=== PATIENT | male | born 1960 | race Caucasian/White ===

== ENCOUNTER 2022-06-22 11:04 | Emergency (ER) | payer BC ==
[2022-06-22] MEDS ORDERED: NA CHLORIDE 0.9% 1,000 ML ONE (11:24)
[2022-06-22] MEDS ORDERED: MECLIZINE HCL 12.5 MG TAB ONE (11:24)
[2022-06-22] MEDS ORDERED: ONDANSETRON 4 MG/2 ML VIAL ONE (11:24)
--- NOTE | 2022-06-22 11:40 | RAD REPORT ---
EXAM DESCRIPTION: CT - Head Brain Wo Cont - 06/22/2022 11:33 am CLINICAL HISTORY: Dizziness COMPARISON: none TECHNIQUE: Computed axial tomography of the head was obtained. IV contrast was not requested. All CT scans are performed using dose optimization technique as appropriate and may include automated exposure control or mA/KV adjustment according to patient size. FINDINGS: An intracranial bleed is not seen The ventricles are normal in caliber No significant hypodense areas within the brain visualized No extra-axial fluid collection is noted. Fluid within the sinuses/ mastoids is not seen IMPRESSION: No acute intracranial abnormality is seen If patient's symptoms persist MRI of the brain would be recommended
--- NOTE | 2022-06-22 11:44 | RAD REPORT ---
EXAM DESCRIPTION: [facility] Single View3 11:34 am CLINICAL HISTORY: Chest pain COMPARISON: none FINDINGS: The lungs appear clear of acute infiltrate. The heart is normal size IMPRESSION: No acute abnormalities displayed
[2022-06-22 11:48] LABS: Absolute Lymphocytes (CBC) 1.9 K/uL (0.7-4.9); Lymphocytes % 19.8 % (15.3-44.8); MCV 96.5 fL (80-100); RBC Red Blood Cell Count 4.97 M/uL (4.33-5.43)
[2022-06-22 11:57] LABS: Protime INR 1.01
[2022-06-22 12:18] LABS: ALT/SGPT 25 U/L (16-61); AST/SGOT 17 U/L (15-37); Alkaline Phosphatase 60 U/L (45-117); BUN Blood Urea Nitrogen 13 mg/dL (7-18); Bicarbonate 27 mmol/L (21-32); Bilirubin Direct 0.3 mg/dL (0-0.2); Bilirubin Total 0.7 mg/dL (0.2-1.0); Glomerular Filtration Rate 96 ml/min (=/>90); Glucose Level 185 mg/dL (74-106); Lipase 53 U/L (13-75); NT PRO-BNP 29 pg/mL (<125); Potassium 4.3 mmol/L (3.5-5.1); Protein, Total 7.2 g/dL (6.4-8.2); Sodium Level 136 mmol/L (136-145)
--- NOTE | 2022-06-22 12:21 | RAD REPORT ---
EXAM DESCRIPTION: USCarotid Artery Bilateral06/22/2022 11:59 am CLINICAL HISTORY: Dizziness COMPARISON: None FINDINGS: The velocity of the right internal carotid artery equals 100 a cm/sec. The right ICA/CCA r atio 1.4 The velocity of the left internal carotid artery equals 106 cm/sec. The left ICA/CCA ratio 1.3 Mild plaque is present within the carotid arteries. The vertebral arteries demonstrate antegrade flow IMPRESSION: Mild plaque within the carotid arteries without evidence of a hemodynamically significan t stenosis NASCET criteria used. Mild 0-49% stenosis Moderate 50-69% stenosis Severe 70-99% stenosis
[2022-06-22 12:23] LABS: Troponin High Sensitivity < 3.0 pg/mL (<58.9)
[2022-06-22 13:01] LABS: SARS-COV-2 RT PCR NEGATIVE (NEGATIVE)
[2022-06-22] MEDS ORDERED: ASPIRIN 81 MG CHEWABLE TABLET ONE (13:06)
--- NOTE | 2022-06-22 13:08 | ER ---
Nurse's Notes [facility] Name: Ry Meléndez Age: 62 yrs Sex: Male : 1960 Arrival Date: 06/22/2022 Time: 11:08 Bed 24 Private MD: Diagnosis: Dizziness and giddiness;Benign paroxysmal vertigo, unspecified ear Presentation: 06/22 11:14 Chief complaint: Patient states: Gradual onset of dizziness/ lightheadedness that began ss at 0900 this morning. PT reports that he has been battling allergies the past 3 days and had problems with his L ear, but feels it has gotten a little better. Coronavirus screen: Client denies travel out of the [place] in the last 14 days. Ebola Screen: Patient denies exposure to infectious person. Patient denies travel to an Ebola-affected area in the 21 days before illness onset. Initial Sepsis Screen: Does the patient meet any 2 criteria? No. Patient's initial sepsis screen is negative. Does the patient have a suspected source of infection? No. Patient's initial sepsis screen is negative. Risk Assessment: Do you want to hurt yourself or someone else? Patient reports no desire to harm self or others. Onset of symptoms was June 22, 2022. 11:14 Method Of Arrival: Ambulatory ss 11:14 Acuity: ZEESHAN 2 ss Triage Assessment: 12:00 General: Appears in no apparent distress. uncomfortable, Behavior is calm, cooperative, eh3 appropriate for age. Pain: Denies pain. Historical: - Allergies: 11:17 Singulair; ss - PMHx: 11:17 Prediabetic; Hypertensive disorder; ss - PSHx: 11:17 Tonsillectomy; Adenoid excision; ss - Immunization history:: Client reports having NOT received the Covid vaccine. - Social history:: Smoking status: Patient denies any tobacco usage or history of. Patient uses alcohol, only on a social basis. - Family history:: not pertinent. Screenin:00 [facility] ED Fall Risk Assessment (Adult) History of falling in the last 3 months, eh3 including since admission No falls in past 3 months (0 pts) Confusion or Disorientation No (0 pts) Intoxicated or Sedated No (0 pts) Impaired Gait No (0 pts) Mobility Assist Device Used No (0 pt) Altered Elimination No (0 pt) Score/Fall Risk Level 0 - 2 = Low Risk. Abuse screen: Denies threats or abuse. Denies injuries from another. Nutritional screening: No deficits noted. Tuberculosis screening: No symptoms or risk factors identified. Assessment: 12:00 General: Appears in no apparent distress. comfortable, Behavior is calm, cooperative, eh3 appropriate for age. Pain: Denies pain. Pain does not radiate. Pain began 2 hours ago. Neuro: Level of Consciousness is awake, alert, obeys commands, Oriented to person, place, time, situation, Reports dizziness. Cardiovascular: Capillary refill < 3 seconds Patient's skin is warm and dry. Respiratory: Airway is patent Respiratory effort is even, unlabored, Respiratory pattern is regular, symmetrical. 13:00 Reassessment: Patient appears in no apparent distress at this time. Patient and/or eh3 family updated on plan of care and expected duration. Pain level reassessed. Patient is alert, oriented x 3, equal unlabored respirations, skin warm/dry/pink. Vital Signs: 11:14 BP 138 / 77; Pulse 58; Resp 16; Temp 97.8(TE); Pulse Ox 98% on R/A; Weight 107.5 kg; Height 6 ft. 2 in. (187.96 cm); Pain 0/10; 12:00 BP 120 / 82; Pulse 55; Resp 16; Pulse Ox 96% on R/A; eh3 13:00 BP 118 / 92; Pulse 63; Resp 14; Pulse Ox 97% on R/A; eh3 11:14 Body Mass Index 30.43 (107.50 kg, 187.96 cm) ED Course: 11:08 Patient arrived in ED. em1 11:09 Lawrence Caraballo MD is Attending Physician. leigh 11:17 Triage completed. ss 11:17 Arm band placed on right wrist. ss 11:34 CT Head Brain wo Cont In Process Unspecified. EDMS 11:35 XRAY Chest (1 view) In Process Unspecified. EDMS 11:46 US Carotid Artery Bilateral In Process Unspecified. EDMS 12:00 Patient has correct armband on for positive identification. Bed in low position. Call 3 light in reach. Side rails up X2. Client placed on continuous cardiac and pulse oximetry monitoring. NIBP monitoring applied. Door closed. Noise minimized. 12:00 Patient maintains SpO2 saturation greater than 95% on room air. 3 12:30 Geni Mak, RN is Primary Nurse. 3 13:07 Dioni Chen MD is Referral Physician. [facility] 13:44 No provider procedures requiring assistance completed. IV discontinued, intact, eh3 bleeding controlled, No redness/swelling at site. Pressure dressing applied. Administered Medications: 11:28 Drug: Zofran (Ondansetron) 8 mg Route: IVP; Site: right antecubital; [facility] 13:09 Follow up: Response: Nausea is decreased [facility] 11:28 Drug: Meclizine 50 mg Route: PO; 5 13:09 Follow up: Response: Marked relief of symptoms [facility] 11:29 Drug: NS 0.9% 1000 ml Route: IV; Rate: 1 bolus; Site: right antecubital; [facility] 13:00 Follow up: IV Status: Completed infusion; IV Intake: 1000ml [facility] 13:09 Drug: Aspirin Chewable Tablet 162 mg Route: PO; 3 13:09 Follow up: Response: No adverse reaction [facility] Medication: 13:44 VIS not applicable for this client. 3 Intake: 13:00 IV: 1000ml; Total: 1000ml. 3 Outcome: 13:07 Discharge ordered by . [facility] 13:44 Patient left the ED. [facility] 13:44 Discharged to home ambulatory. [facility] 13:44 Condition: stable 13:44 Discharge instructions given to patient, Instructed on discharge instructions, follow up and referral plans. Demonstrated understanding of instructions, follow-up care. Signatures: Dispatcher [employer] EDLawrence Mckeon MD MD cha Martinez, Eric em1 Gracie Chaudhari RN RN Ondina Quispe RN RN 5 Geni Mak, YARELIS SANTOYO 3
--- NOTE | 2022-06-22 13:08 | EDPHYS ---
Physician Documentation [facility] Name: Ry Meléndez Age: 62 yrs Sex: Male : 1960 Arrival Date: 06/22/2022 Time: 11:08 Bed 24 Private MD: ED Physician Lawrence Caraballo HPI: 06/22 11:23 This 62 yrs old Male presents to ER via Ambulatory with complaints of [facility] Dizziness. 11:23 The patient or guardian reports chest pain that is located primarily in the anterior leigh chest wall, bilaterally. Onset: this morning. The patient presents with dizziness, sense of spinning. Onset: The symptoms/episode began/occurred this morning. Context: occurred at home. Modifying factors: The symptoms are alleviated by holding head still, the symptoms are aggravated by movement of head. Associated signs and symptoms: The patient has no apparent associated signs or symptoms. The pain does not radiate. Severity of symptoms: At their worst the symptoms were mild in the emergency department the symptoms are unchanged. Associated signs and symptoms: The patient has no apparent associated signs or symptoms. The chest pain is described as aching. Historical: - Allergies: 11:17 Singulair; ss - PMHx: 11:17 Prediabetic; Hypertensive disorder; ss - PSHx: 11:17 Tonsillectomy; Adenoid excision; ss - Immunization history:: Client reports having NOT received the Covid vaccine. - Social history:: Smoking status: Patient denies any tobacco usage or history of. Patient uses alcohol, only on a social basis. - Family history:: not pertinent. ROS: 11:23 Constitutional: Negative for fever, chills, and weight loss, Eyes: Negative for injury, leigh pain, redness, and discharge, Neck: Negative for injury, pain, and swelling, Respiratory: Negative for shortness of breath, cough, wheezing, and pleuritic chest pain, Abdomen/GI: Negative for abdominal pain, nausea, vomiting, diarrhea, and constipation, Back: Negative for injury and pain, : Negative for injury, bleeding, discharge, and swelling, MS/Extremity: Negative for injury and deformity, Skin: Negative for injury, rash, and discoloration, Neuro: Negative for headache, weakness, numbness, tingling, and seizure, Psych: Negative for depression, anxiety, suicide ideation, homicidal ideation, and hallucinations, Allergy/Immunology: Negative for hives, rash, and allergies, Endocrine: Negative for neck swelling, polydipsia, polyuria, polyphagia, and marked weight changes, Hematologic/Lymphatic: Negative for swollen nodes, abnormal bleeding, and unusual bruising. 11:23 ENT: Positive for ear pain, rhinorrhea. 11:23 Cardiovascular: Positive for chest pain, palpitations. 11:23 Neuro: Positive for dizziness. Exam: 11:23 Constitutional: This is a well developed, well nourished patient who is awake, alert, leigh and in no acute distress. Head/Face: Normocephalic, atraumatic. Eyes: Pupils equal round and reactive to light, extra-ocular motions intact. Lids and lashes normal. Conjunctiva and sclera are non-icteric and not injected. Cornea within normal limits. Periorbital areas with no swelling, redness, or edema. ENT: Nares patent. No nasal discharge, no septal abnormalities noted. Tympanic membranes are normal and external auditory canals are clear. Oropharynx with no redness, swelling, or masses, exudates, or evidence of obstruction, uvula midline. Mucous membranes moist. Neck: Trachea midline, no thyromegaly or masses palpated, and no cervical lymphadenopathy. Supple, full range of motion without nuchal rigidity, or vertebral point tenderness. No Meningismus. Chest/axilla: Normal chest wall appearance and motion. Nontender with no deformity. No lesions are appreciated. Cardiovascular: Regular rate and rhythm with a normal S1 and S2. No gallops, murmurs, or rubs. Normal PMI, no JVD. No pulse deficits. Respiratory: Lungs have equal breath sounds bilaterally, clear to auscultation and percussion. No rales, rhonchi or wheezes noted. No increased work of breathing, no retractions or nasal flaring. Abdomen/GI: Soft, non-tender, with normal bowel sounds. No distension or tympany. No guarding or rebound. No evidence of tenderness throughout. Back: No spinal tenderness. No costovertebral tenderness. Full range of motion. Male : Normal genitalia with no discharge or lesions. Skin: Warm, dry with normal turgor. Normal color with no rashes, no lesions, and no evidence of cellulitis. MS/ Extremity: Pulses equal, no cyanosis. Neurovascular intact. Full, normal range of motion. Neuro: Awake and alert, GCS 15, oriented to person, place, time, and situation. Cranial nerves II-XII grossly intact. Motor strength 5/5 in all extremities. Sensory grossly intact. Cerebellar exam normal. Normal gait. Psych: Awake, alert, with orientation to person, place and time. Behavior, mood, and affect are within normal limits. 12:30 ECG was reviewed by the Attending Physician. leigh 13:04 ENT: Ear canal(s): are normal, no acute changes, TM's: are normal, no acute changes, leigh Posterior pharynx: Airway: normal, no evidence of obstruction. Vital Signs: 11:14 BP 138 / 77; Pulse 58; Resp 16; Temp 97.8(TE); Pulse Ox 98% on R/A; Weight 107.5 kg; ss Height 6 ft. 2 in. (187.96 cm); Pain 0/10; 12:00 BP 120 / 82; Pulse 55; Resp 16; Pulse Ox 96% on R/A; eh3 13:00 BP 118 / 92; Pulse 63; Resp 14; Pulse Ox 97% on R/A; eh3 11:14 Body Mass Index 30.43 (107.50 kg, 187.96 cm) ss MDM: 11:09 Patient medically screened. leigh 11:28 Differential diagnosis: abnormal EKG, acute myocardial infarction, acute pericarditis, leigh chest wall pain, esophagitis, hiatal hernia, pancreatitis, pneumonia, pulmonary embolus, stable angina, unstable angina. Data reviewed: vital signs, nurses notes, lab test result(s), EKG, radiologic studies, CT scan, doppler, plain films. 06/22 11:12 Order name: Basic Metabolic Panel; Complete Time: 12:26 [facility] 06/22 11:12 Order name: CBC with Diff; Complete Time: 12:26 [facility] 06/22 11:12 Order name: LFT's; Complete Time: 12:26 [facility] 06/22 11:12 Order name: Magnesium; Complete Time: 12:26 [facility] 06/22 11:12 Order name: NT PRO-BNP; Complete Time: 12:26 [facility] 06/22 11:12 Order name: PT-INR; Complete Time: 12:26 [facility] 06/22 11:12 Order name: Troponin HS; Complete Time: 12:26 [facility] 06/22 11:12 Order name: XRAY Chest (1 view); Complete Time: 12: [facility] 06/22 11:12 Order name: EKG; Complete Time: 11: [facility] 06/22 11:12 Order name: Cardiac monitoring; Complete Time: [facility] 06/22 11:12 Order name: EKG - Nurse/Tech; Complete Time: 12:22 [facility] 06/22 11:12 Order name: IV Saline Lock; Complete Time: [facility] 06/22 11:12 Order name: Labs collected and sent; Complete Time: : [facility] 06/22 11:12 Order name: O2 Per Protocol; Complete Time: : [facility] 06/22 11:12 Order name: O2 Sat Monitoring; Complete Time: : [facility] 06/22 11:12 Order name: Lipase; Complete Time: 12: [facility] 06/22 11:12 Order name: CT Head Brain wo Cont; Complete Time: 12: [facility] 06/22 11:22 Order name: US Carotid Artery Bilateral; Complete Time: 12: [facility] 06/22 11:43 Order name: Labs - recollect needed: recollect covid swab; Complete Time: 12: 06/22 12:19 Order name: COVID-19/FLU A+B; Complete Time: 13:03 ss EC:30 Rate is 54 beats/min. Rhythm is regular. QRS [place] is Normal. VT interval is normal. QRS leigh interval is normal. QT interval is normal. No Q waves. T waves are Normal. No ST changes noted. Clinical impression: Sinus bradycardia and No evidence of ischemia. Interpreted by me. Reviewed by me. Administered Medications: Drug: Zofran (Ondansetron) 8 mg Route: IVP; Site: right antecubital; [facility] 13:09 Follow up: Response: Nausea is decreased 3 11:28 Drug: Meclizine 50 mg Route: PO; [facility] 13:09 Follow up: Response: Marked relief of symptoms eh3 11:29 Drug: NS 0.9% 1000 ml Route: IV; Rate: 1 bolus; Site: right antecubital; [facility] 13:00 Follow up: IV Status: Completed infusion; IV Intake: 1000ml 3 13:09 Drug: Aspirin Chewable Tablet 162 mg Route: PO; [facility] 13:09 Follow up: Response: No adverse reaction 3 Disposition Summary: 06/22/22 13:07 Discharge Ordered Location: Home leigh Problem: new leigh Symptoms: have improved leigh Condition: Stable leigh Diagnosis - Dizziness and giddiness leigh - Benign paroxysmal vertigo, unspecified ear leigh Followup: leigh - With: Private Physician - When: As needed - Reason: If symptoms return, Recheck today's complaints, Re-evaluation by your physician Followup: leigh - With: - When: 2 - 3 days - Reason: Recheck today's complaints, Continuance of care, Re-evaluation by your physician Discharge Instructions: - Discharge Summary Sheet leigh - Benign Positional Vertigo leigh - Dizziness leigh - Motion Sickness leigh - Vertigo leigh - Vertigo, [id number] leigh - Aspirin and Your Heart leigh - Dizziness, [id number] leigh Forms: - Medication Reconciliation Form leigh - Thank You Letter leigh - Antibiotic Education leigh - Prescription Opioid Use leigh Prescriptions: - Meclizine 25 mg Oral Tablet - take 1 tablet by ORAL route every 6 hours As needed; 30 tablet; Refills: 0, [facility] Product Selection Permitted - Zofran 4 mg Oral Tablet - take 1 tablet by ORAL route every 12 hours As needed; 20 tablet; Refills: 0, [facility] Product Selection Permitted - Medrol (Juan) 4 mg Oral Tablets, Dose Pack - take 1 tablet by ORAL route as directed - follow package instructions; 1 leigh packet; Refills: 0, Product Selection Permitted Signatures: Dispatcher [employer] Mimi Mcdonald Corey, MD MD cha Smirch, Shelby, RN RN ss Rees, Jessica, RN RN 5 Geni Mak RN RN 3
[2022-06-22 14:12] VITALS: BP 118/92; O2SAT 97
[2022-06-22 14:20] VITALS: TEMP 97.5
--- NOTE | 2022-06-23 17:29 | EKG ---
Test Date: 2022-06-22 Test Time: 12:15:40 On Air Host: MEASUREMENT RESULTS: Intervals: Rate: 54 NV: 128 QRSD: 106 QT: 416 QTc: 394 [place]: P: 39 NV: 128 QRS: 24 T: 12 INTERPRETIVE STATEMENTS: Sinus bradycardia Otherwise normal ECG No previous ECG available for comparison Electronically Signed On 06-23-22 17:26:30 [employer] by [employer]
== END 2022-06-22 13:44 | disposition home or self-care (01) ==
LOC: ER 11:04
DX: H81.10 Benign paroxysmal vertigo, unspecified ear (principal); I10 Essential (primary) hypertension; Z88.8 Allergy status to other drugs, medicaments and biological substances; Z20.822 Contact with and (suspected) exposure to COVID-19
CPT/HCPCS: 85025; 80048; 36415; 83735; 85610; 80076; 84484; 83690; 83880; 0240U; 70450; 71045; 93880; J8597; J7030; J2405; 93005